=== PATIENT | female | born 1980 | race African-American/Black ===

== ENCOUNTER 2018-07-10 20:15 | Emergency (ER) | payer MEDICAID ==
[~2018-07-10] VITALS: Ht 182.9 cm; Wt 79.4 kg
[2018-07-10 20:30] VITALS: BP 124/70
--- NOTE | 2018-07-10 20:47 | Emergency Room Report ---
History of Present Illness General Chief Complaint: Headache Source: Patient Present Illness HPI Ms. Chaudhry is a healthy 38-year-old male female with history of headaches. She has had debilitating headaches for the last 4 years. No association with photophobia or phonophobia. No nausea no vomiting. She also has a boil on her right groin. Headaches can last for several days. She uses [id number] medications. Allergies: Coded Allergies: No Known Allergies (Unverified , 07/10/18) Patient History Past Medical History: see triage record Past Surgical History: other - no recent surgeries Last Menstrual Period: Jun Now: No Nursing Documentation-[facility] Past Medical History: No Stated History Review of Systems Constitutional: Denies: sweats, fever, malaise Respiratory: Denies: cough Cardiovascular: Denies: chest pain Gastrointestinal: Denies: abdominal pain, nausea, vomiting Skin: Reports: rash Physical Exam Vital Signs Date Time Temp Pulse Resp B/P (MAP) Pulse Ox O2 Delivery O2 Flow Rate FiO2 07/10/18 20:27 98.6 75 16 124/70 100 Room Air Sp02 EP Interpretation: reviewed, normal General Appearance: no apparent distress, alert, GCS 15, non-toxic Head: normocephalic, atraumatic Eyes: bilateral eye normal inspection, bilateral eye PERRL ENT: hearing grossly normal, normal pharynx, no angioedema, normal voice Neck: full range of motion, supple/symm/no masses Respiratory: speaking full sentences Musculoskeletal: back normal, gait/station normal, normal range of motion, calf tenderness Neurologic: alert, oriented x3, responsive, motor strength/tone normal, sensory intact, speech normal Reflexes: 3+ bicep (R), 3+ bicep (L), 3+ tricep (R), 3+ tricep (L), 3+ knee (R) , 3+ knee (L) Skin: other - small abscess with 2 small ulcers right upper medial thigh Medical Decision Making Diagnostic Impression: Primary Impression: Tension headache Additional Impression: Groin abscess ER Course tension headache vs migraine headache for 4 years rx: fioricet bactrim for small abscess Last Vital Signs Date Time Temp Pulse Resp B/P (MAP) Pulse Ox O2 Delivery O2 Flow Rate FiO2 07/10/18 20:27 98.6 75 16 124/70 100 Room Air Disposition: HOME, SELF-CARE Condition: Stable De Paz,[place] MD Jul 10, 2018 20:46
[2018-07-10] MEDS ORDERED: BACTRIM DS TAB1 EAC1 ORAL (20:48)
[2018-07-10] MEDS ORDERED: FIORICET1 EA ORAL (20:48)
[2018-07-10 20:50] VITALS: BP 122/68
== END 2018-07-10 20:50 | disposition home or self-care (01) ==
LOC: EMR 20:45
DX: G44.209 Tension-type headache, unspecified, not intractable (principal); L02.214 Cutaneous abscess of groin
CPT/HCPCS: 99282